=== PATIENT | male | born 1990 | race African-American/Black ===

== ENCOUNTER 2017-09-17 09:38 | Emergency (ER) | payer OTHER ==
[~2017-09-17] VITALS: Ht 175.3 cm; Wt 113.4 kg
[~2017-09-17 09:38] MED LIST: ACCUNEB SO1.25 MG/1; ACETAMINOPHEN325 M1 PO; ALLEGRA ALLERG180 MG PO; AUGMENTIN 875-1 EACH PO; AUGMENTIN 875875 MG PO; CARISOPRODOL 3350 MG PO; CYCLOBENZAPRINE10 MG PO; DOXYCYCLINE 10100 MG PO; GARAMYCIN5 M1 OP; NABUMETONE 500500 M1 PO; NAPROSYN500 MG PO; NOHOMEMEDICATIONS; NORCO 5-325 TA1 EACH PO; NUCYNTA ER200 MG PO; PENICILLIN VK500 MG PO; PERCOCET 5-3251 EACH PO; PHENERGAN 25 MG25 M1 PO; PROMETHAZINE-C120 ML PO; PROMS25 WY RECTAL; TESSALON200 MG PO; TRAMADOL 50 MG50 MG PO; ULTRAM 50MG TAB50 MG PO; ZPAK PO
[2017-09-17 09:46] VITALS: BP 152/100
[2017-09-17] MEDS ORDERED: NOHOMEMEDICATIONS (09:51)
[2017-09-17] MEDS ORDERED: IBUPROFEN 600600 M1 PO (10:42)
[2017-09-17] MEDS ORDERED: TESSALON PERLE100 MG PO (10:42)
[2017-09-17] MEDS ORDERED: PROMETHAZINE/C118 ML PO (10:42)
[2017-09-17] MEDS ORDERED: ZOFRAN ODT4 MG PO (10:42)
== END 2017-09-17 10:55 | disposition home or self-care (01) ==
LOC: ER 09:38
DX: J20.8 Acute bronchitis due to other specified organisms (principal); Z88.8 Allergy status to other drugs, medicaments and biological substances; Z91.018 Allergy to other foods; Z87.891 Personal history of nicotine dependence

== ENCOUNTER 2018-03-10 16:13 | Emergency (ER) | payer OTHER ==
[~2018-03-10] VITALS: Ht 175.3 cm; Wt 113.4 kg
[~2018-03-10 16:13] MED LIST changes: +IBUPROFEN 600600 M1 PO; +PROMETHAZINE/C118 ML PO; +TESSALON PERLE100 MG PO; +ZOFRAN ODT4 MG PO
[2018-03-10] MEDS ORDERED: NORCO 5-325 TA1 EACH PO (17:46)
== END 2018-03-10 18:02 | disposition home or self-care (01) ==
LOC: ER 16:13
DX: S61.412A Laceration without foreign body of left hand, initial encounter (principal); Z87.891 Personal history of nicotine dependence; Z88.8 Allergy status to other drugs, medicaments and biological substances; Z91.018 Allergy to other foods; W22.8XXA Striking against or struck by other objects, initial encounter; Y92.89 Other specified places as the place of occurrence of the external cause; Y93.89 Activity, other specified; Y99.8 Other external cause status

== ENCOUNTER 2018-09-20 11:42 | Emergency (ER) | payer OTHER ==
[~2018-09-20] VITALS: Ht 175.3 cm; Wt 113.4 kg
[2018-09-20] MEDS ORDERED: MEDROLDOSEPACK PO (13:10)
[2018-09-20] MEDS ORDERED: CYCLOBENZAPRINE5 MG PO (13:10)
[2018-09-20] MEDS ORDERED: NORCO 5-325 TA1 EACH PO (13:10)
[2018-09-20 13:47] VITALS: BP 148/97
== END 2018-09-20 13:48 | disposition home or self-care (01) ==
LOC: ER 11:42
DX: M54.41 Lumbago with sciatica, right side (principal); M51.26 Other intervertebral disc displacement, lumbar region; Z87.891 Personal history of nicotine dependence; Z88.8 Allergy status to other drugs, medicaments and biological substances; Z91.018 Allergy to other foods

== ENCOUNTER 2020-02-04 15:29 | Emergency (ER) | payer OTHER ==
[~2020-02-04] VITALS: Ht 175.3 cm; Wt 104.3 kg
[~2020-02-04 15:29] MED LIST changes: +CYCLOBENZAPRINE5 MG PO; +MEDROLDOSEPACK PO
[2020-02-04 16:04] LABS: ABSOLUTE NEUTROPHILS 12.9 thou/uL (1.4-8.2); BASOPHILS 0.7 % (0.0-2.0); EOSINOPHILS 0.5 % (0.0-3.0); HEMATOCRIT 45.9 % (42.0-52.0); HEMOGLOBIN 15.8 gm/dL (14.0-18.0); LYMPHOCYTES 17.8 % (24.0-44.0); MCH 29.3 pg (26.0-34.0); MCHC 34.4 g/dL (28.0-37.0); MCV 85.1 fL (80.0-100.0); MONOCYTES 7.2 % (1.0-8.0); PLATELET COUNT 323 thou/uL (150-400); POLYS 73.8 % (36.0-66.0); RBC 5.39 mil/uL (4.50-6.00); RDW 12.4 % (10.5-14.5); WBC 17.5 thou/uL (4.0-11.0)
[2020-02-04 16:11] LABS: ANION GAP 9 mmol/L (7-16); BUN 15 mg/dL (7-18); CALCIUM 10.2 mg/dL (8.5-10.1); CHLORIDE 100 mmol/L (98-107); CO2 28 mmol/L (21-32); CREATININE 1.4 mg/dL (0.7-1.3); GLUCOSE 83 mg/dL (74-106); POTASSIUM 3.4 mmol/L (3.5-5.1); SODIUM 137 mmol/L (136-145)
[2020-02-04 16:24] LABS: ALBUMIN 4.9 g/dL (3.4-5.0); DIRECT BILIRUBIN < 0.1 mg/dL (<0.1-0.2); SGOT 29 U/L (15-37); SGPT 30 U/L (30-65); TOTAL BILIRUBIN 0.6 mg/dL (0.2-1.0); TOTAL PROTEIN 8.3 g/dL (6.4-8.2)
[2020-02-04 17:41] LABS: URINE BILIRUBIN 1+ (Negative); URINE BLOOD NEGATIVE (Negative); URINE GLUCOSE-RANDOM* NEGATIVE (Negative); URINE KETONES 1+ (Negative); URINE LEUKOCYTES-REFLEX NEGATIVE (Negative); URINE NITRITE-REFLEX NEGATIVE (Negative); URINE PROTEIN (DIPSTICK) TRACE (Negative); URINE SPECIFIC GRAVITY 1.025 (1.005-1.035)
[2020-02-04 17:42] LABS: ICTOTEST (BILI CONFIRMATORY) Negative (Negative); URINE CLARITY HAZY; URINE COLOR AMBER
[2020-02-04] MEDS ORDERED: REGLAN 5 MG TAB5 MG PO (18:32)
[2020-02-04 18:46] VITALS: BP 144/84
--- NOTE | 2020-02-05 09:45 | EKG ---
[facility] [place] [address] ELECTROCARDIOGRAM REPORT Name: MINH MARKS Room #: [facility]P [facility]Jose[facility] [id number] Admission: 02/04/20 Attend Phys: Discharge: 02/04/20 Date of : [birth year] Report #: [id number] THIS REPORT FOR: cc: CHARLENE King family physician/PCP CHARLENE - Christine family physician/PCP Bob Mosqueda MD [facility] THIS REPORT FOR: //name// [facility] ED Test Date: 2020-02-04 Test Time: 15:39:52 Pat Name: MINH MARKS Department: Room: Gender: [employer]: yolanda : 1990 Requested By: Arlene Lopes Order Number: [id number] MD: Bob Mosqueda Measurements Intervals [place] Rate: 95 P: 52 KS: 197 QRS: 3 QRSD: 100 T: 36 QT: 351 QTc: 442 Interpretive Statements Sinus rhythm Borderline prolonged [place] interval Poor septal R wave progression Compared to ECG 01/05/2016 20:52:03 No significant change was found Electronically Signed On 02-05-2020 9:45:16 CDT by Bob Mosqueda [email or web address] <ELECTRONICALLY SIGNED> By: Bob Mosqueda MD, [facility] 02/05/20 0945 [id number] 1539 Bob Mosqueda MD, [facility] /EPI
== END 2020-02-04 18:47 | disposition home or self-care (01) ==
LOC: ER 15:29
PROVIDERS: Emergency Medicine
DX: E86.0 Dehydration (principal); T67.5XXA Heat exhaustion, unspecified, initial encounter; R55 Syncope and collapse; Z87.891 Personal history of nicotine dependence; Z88.6 Allergy status to analgesic agent; Z98.890 Other specified postprocedural states; X58.XXXA Exposure to other specified factors, initial encounter; Y93.9 Activity, unspecified; Y92.89 Other specified places as the place of occurrence of the external cause; Y99.9 Unspecified external cause status